=== PATIENT | female | born 1965 | race Caucasian/White ===

== ENCOUNTER 2016-11-13 06:15 | Day surgery (SDC) | payer OTHER ==
[~2016-11-13] VITALS: Ht 172.7 cm; Wt 86.4 kg
[~2016-11-13 06:15] MED LIST: LISINOPRIL10 MG PO; LUNESTA1 MG PO; ZOMIG5 MG PO
[2016-11-13] MEDS ORDERED: HYDROMORPHONE HC2 MG PO (08:17)
--- NOTE | 2016-11-13 08:18 | Provider's Discharge Care Plan ---
Problem, Goal, Plan Problem List 1. Neurofibromatosis, unspecified Goals: Improve function Instructions: Increase activity level
--- NOTE | 2016-11-13 08:18 | Provider's Discharge Care Plan ---
Problem, Goal, Plan Problem List 1. Neurofibromatosis, unspecified Goals: Improve function Instructions: Increase activity level
[2016-11-13 09:23] VITALS: BP 153/63
== END 2016-11-13 10:13 | disposition home or self-care (01) ==
LOC: OR SRH 06:15 → SCU SRH 06:15 → OR SRH 07:30
PROVIDERS: Podiatrist
PROC: 0JBQ0ZZ Excision of Right Foot Subcutaneous Tissue and Fascia, Open Approach (ICD-10-PCS; principal; 2016-11-13 07:30)
DX: M72.2 Plantar fascial fibromatosis (principal); I10 Essential (primary) hypertension
CPT/HCPCS: 29229; 29240; 50002; 60001; 70002; 80212; 80575; 83414; 84044; 90074; 90100; 93070; 95059